=== PATIENT | male | born 1970 | race Two or more races ===

== ENCOUNTER 2020-07-25 15:41 | Outpatient (CLI) | payer OTHER | END 2020-07-25 16:03 | disposition home or self-care (01) | LOC: SONOGRAMA 15:41 | PROVIDERS: ATTEND Specialist/Technologist, Other Nephrology | DX: N28.89 Other specified disorders of kidney and ureter (principal); N13.8 Other obstructive and reflux uropathy ==

== ENCOUNTER 2022-01-05 11:28 | Emergency (ER) | payer OTHER ==
[~2022-01-05] VITALS: Ht 134.6 cm; Wt 29.0 kg
== END 2022-01-05 16:07 | disposition home or self-care (01) ==
LOC: EMR PED 11:28
DX: S01.02XA Laceration with foreign body of scalp, initial encounter (principal); W22.8XXA Striking against or struck by other objects, initial encounter; Y93.02 Activity, running; Y92.211 Elementary school as the place of occurrence of the external cause

== ENCOUNTER 2023-11-30 07:59 | Outpatient (CLI) | payer OTHER | END 2023-11-30 08:09 | disposition home or self-care (01) | LOC: RAD 07:59 | PROVIDERS: ATTEND Physical Medicine & Rehabilitation Sports Medicine | DX: S62.307A Unspecified fracture of fifth metacarpal bone, left hand, initial encounter for closed fracture (principal) ==